=== PATIENT | male | born 1960 | race Caucasian/White ===

== ENCOUNTER 2018-01-12 17:38 | Inpatient (IN) | payer BC ==
[~2018-01-12] VITALS: Ht 176.5 cm; Wt 113.5 kg
[2018-01-12 18:21] LABS: HEMATOCRIT 43.4 % (38.0-50.0); HEMOGLOBIN 15.2 G/DL (12.5-16.6); MCH 32.1 PG (29.0-34.0); MCV 91.8 FL (86-99); PLATELET COUNT 198 K/uL (156-360); RBC DIS.WIDTH-CV 14.5 % (11.8-14.6); RBC DIS.WIDTH-SD 49.1 % (39-53); RED BLOOD COUNT 4.73 M/uL (4.00-5.50); WHITE BLOOD COUNT 7.8 K/uL (4.1-10.2)
[2018-01-12 18:29] LABS: CHLORIDE 109 mEq/L (99-109); SODIUM 140 mEq/L (136-147)
[2018-01-12 18:31] LABS: GLUCOSE 88 mg/dL (70-99)
[2018-01-12 18:34] LABS: CREATININE 1.1 mg/dL (0.6-1.3)
[2018-01-12 18:35] LABS: UREA NITROGEN (BUN) 16 mg/dL (9-23)
[2018-01-12 18:36] LABS: GFR ESTIMATE (CALCULATED) > 59 mL/min/ (58.99-99999)
[2018-01-12 18:41] LABS: TROP-I INTERPRETATION NEGATIVE; TROPONIN-I 0.07 ng/mL (0.0-0.30)
[2018-01-12] MEDS ORDERED: ENALAPRIL-HCTZ1 EACH PO (19:25)
[2018-01-12] MEDS ORDERED: LEVOTHYROXINE175 MCG PO (19:25)
[2018-01-12 21:29] LABS: TOTAL PROTEIN 6.7 g/dL (6.4-8.3)
[2018-01-12 21:31] LABS: TOTAL BILIRUBIN 0.6 mg/dL (0.0-1.0)
[2018-01-12 21:32] LABS: ALKALINE PHOSPHATASE 58 IU/L (3-129)
[2018-01-12 21:34] LABS: AST (GOT) 21 IU/L (2-34); DIRECT BILIRUBIN 0.2 mg/dL (0.0-0.3)
[2018-01-12 21:35] LABS: ALT (GPT) 16 IU/L (3-49); LIPASE 21 U/L (1.0-51.0)
[2018-01-12 21:57] VITALS: BP 134/84
[2018-01-12 22:08] LABS: TRIGLYCERIDES 266 MG/DL (Normal: <150)
[2018-01-12 22:09] LABS: HDL CHOLESTEROL 31 MG/DL (Desirable>=40); LDL CHOLESTEROL 116 mg/dL (Desirable<100); NON-HDL CHOLESTEROL 169 mg/dL (Desirable<160); TOTAL CHOLESTEROL 200 mg/dL (Desirable<200)
[2018-01-13 01:17] LABS: TROP-I INTERPRETATION NEGATIVE; TROPONIN-I 0.07 ng/mL (0.0-0.30)
[2018-01-13 04:59] VITALS: BP 130/68
[2018-01-13 07:41] LABS: TROP-I INTERPRETATION NEGATIVE; TROPONIN-I 0.09 ng/mL (0.0-0.30)
[2018-01-13 08:05] VITALS: BP 151/81
[2018-01-13 11:47] VITALS: BP 123/60
[2018-01-13 13:31] LABS: TROP-I INTERPRETATION NEGATIVE
[2018-01-13 15:43] VITALS: BP 116/71
[2018-01-13 19:00] VITALS: BP 137/67
[2018-01-13 23:16] VITALS: BP 145/65
[2018-01-14 04:13] VITALS: BP 141/76
[2018-01-14 11:19] VITALS: BP 120/64
[2018-01-14 15:16] VITALS: BP 113/65
[2018-01-14 19:54] VITALS: BP 129/73
[2018-01-15 00:14] VITALS: BP 116/66
[2018-01-15 03:40] VITALS: BP 142/67
[2018-01-15 08:02] VITALS: BP 174/86
[2018-01-15 16:23] VITALS: BP 124/56
[2018-01-15 20:00] VITALS: BP 130/65
[2018-01-15 23:28] VITALS: BP 115/55
[2018-01-16 03:43] VITALS: BP 118/62
[2018-01-16 08:30] VITALS: BP 151/81
[2018-01-16 12:09] VITALS: BP 98/54
[2018-01-16] MEDS ORDERED: LOPRESSOR25 MG PO (18:16)
[2018-01-16] MEDS ORDERED: ATORVASTATIN CA40 MG PO (18:16)
[2018-01-16] MEDS ORDERED: NITROSTAT0.4 MG SL (18:16)
[2018-01-16] MEDS ORDERED: ASPIR-LOW81 MG PO (18:16)
[2018-01-16 20:30] VITALS: BP 114/72
[2018-01-17 00:31] VITALS: BP 125/66
[2018-01-17 04:42] VITALS: BP 128/62
[2018-01-17 06:28] LABS: HEMATOCRIT 43.7 % (38.0-50.0); HEMOGLOBIN 14.8 G/DL (12.5-16.6); MCH 31.2 PG (29.0-34.0); MCHC 33.9 G/DL (30.0-36.0); PLATELET COUNT 192 K/uL (156-360); RBC DIS.WIDTH-SD 47.8 % (39-53); RED BLOOD COUNT 4.75 M/uL (4.00-5.50); WHITE BLOOD COUNT 7.6 K/uL (4.1-10.2)
[2018-01-17 06:50] LABS: CHLORIDE 106 MEQ/L (99-109); CREATININE 0.9 MG/DL (0.6-1.3); GFR ESTIMATE (CALCULATED) > 59 mL/min/ (58.99-99999); GLUCOSE 89 mg/dL (70-99); POTASSIUM 3.9 MEQ/L (3.7-5.4); SODIUM 140 MEQ/L (136-147); UREA NITROGEN (BUN) 24 mg/dL (9-23)
[2018-01-17 07:49] VITALS: BP 168/84
== END 2018-01-17 08:45 | disposition home or self-care (01) | DRG 287 ==
LOC: EME 17:38 → EDOF 20:52 → 5WEST 20:52 → EDOF 20:52 → ENRESERV 20:54 → 5WEST 21:35 → ENRESERV 01-16 19:38 → 5WEST 01-16 20:22
PROVIDERS: Emergency Medicine; Hospitalist; Internal Medicine
DX: I25.110 Atherosclerotic heart disease of native coronary artery with unstable angina pectoris (principal); R00.1 Bradycardia, unspecified; I10 Essential (primary) hypertension; J44.9 Chronic obstructive pulmonary disease, unspecified; E78.5 Hyperlipidemia, unspecified; E03.9 Hypothyroidism, unspecified; E66.9 Obesity, unspecified; F17.210 Nicotine dependence, cigarettes, uncomplicated; Z68.36 Body mass index [BMI] 36.0-36.9, adult
CPT/HCPCS: 71046; 78452; 80048; 80061; 80076; 83690; 84484; 85027; 85379; 93005; 93017; 93971; 99281; 99285; A9500; C1750; C1769; C1887; G0378; J1644; J1650; J2250; J2785; J3010